=== PATIENT | female | born 1990 | race Caucasian/White ===

== ENCOUNTER → 2018-11-02 16:22 | Outpatient (CLI) | payer BC, SELFPAY | PROVIDERS: Visit Provider Obstetrics & Gynecology | DX: O03.9 Complete or unspecified spontaneous abortion without complication (principal) | CPT/HCPCS: 36415; 86850; 86900; 86901 ==

== ENCOUNTER → 2019-08-27 10:43 | Outpatient (CLI) | payer BC, SELFPAY ==
[2019-08-27 12:05] LABS: Add Manual Diff / Slide Review NO; Basophils Absolute Auto 0 /uL (0-100); Basophils Percent Auto 0.4 % (0-2); Eosinophils Absolute Auto 100 /uL (0-450); Eosinophils Percent Auto 0.8 % (2-4); Hematocrit 37.6 % (36-46); Hemoglobin 12.5 g/dL (12.0-16.0); Lymphocytes Absolute Auto 1700 /uL (1100-4500); Mean Corpuscular HGB Conc 33.4 % (30-36); Mean Corpuscular Volume 86.8 fL (80-100); Monocytes Absolute Auto 500 /uL (0-900); Monocytes Percent Auto 5.4 % (3-14); Neutrophils Absolute Auto 6300 /uL (1500-7000); Neutrophils Percent Auto 73.4 % (50-75); Platelet Count 276 X10^3/uL (150-400); Red Blood Cell Count 4.33 X10^6/uL (4.0-5.2); Red Cell Distribution Width 12.9 % (11.6-14.8); White Blood Cell Count 8.5 X10^3/uL (4.5-11.0)
[2019-08-27 12:50] LABS: HCG Quantitative /Beta subunit 11868 mIU/mL
[2019-08-27 13:03] LABS: Appearance Urine UA CLEAR; Bilirubin Urine UA NEGATIVE (NEGATIVE); Color Urine UA YELLOW; Glucose Urine UA NEGATIVE (Negative); Ketones Urine UA NEGATIVE (NEGATIVE); Leukocyte Esterase Urine UA NEGATIVE (NEGATIVE); Nitrite Urine UA NEGATIVE (Negative); Occult Blood Urine UA NEGATIVE (Negative); Protein Urine UA NEGATIVE (Negative); Urobilinogen Urine UA 0.2 E.U./dL (0.2)
[2019-08-27 13:05] LABS: pH Urine UA 7.5 (4.5-8.0)
[2019-08-27 16:00] LABS: Hepatitis B Surface Antigen NEGATIVE s/c (NEGATIVE); Rubella Antibody IgG 3.2 IU/mL (>15)
[2019-08-27 16:18] LABS: HIV 1 & 2 Ab/Ag 4th Gen Combo NEGATIVE (NEGATIVE); Hep C Virus Ab w/Reflex Quant NEGATIVE s/c (NEGATIVE)
[2019-08-28 15:47] LABS: RPR Screen Nonreactive (Nonreactive)
== END ==
PROVIDERS: Referring Provider Obstetrics & Gynecology; Visit Provider Obstetrics & Gynecology
DX: Z34.01 Encounter for supervision of normal first pregnancy, first trimester (principal); Z3A.01 Less than 8 weeks gestation of pregnancy
CPT/HCPCS: 36415; 80055; 81003; 84702; 86787; 86803; 86850; 86900; 86901; 87086; 87389

== ENCOUNTER → 2019-08-29 09:31 | Outpatient (CLI) | payer BC, SELFPAY ==
--- NOTE | 2019-08-29 09:31 | DI.US.S_ITS ---
PROCEDURE: US OB <= 14 WEEKS FETUS INDICATIONS: EARLY , RT ADNEXAL CYSTIC AREA, R/O ECTOPIC OUTSIDE/PRIOR DATING DATA: Last menstrual period (LMP): 07/05/19. LMP-based estimated date of delivery (NELDA): 04/10/20. First dating scan (date and location): See below. Estimated date of delivery (NELDA) from first dating scan: See below. TECHNIQUE: Real-time scanning was performed of the fetus and maternal pelvic organs, with image documentation. Endovaginal scanning was also performed to better visualize the fetus and maternal ovaries. COMPARISON: [facility], , US OB <= 14 WEEKS FETUS, 08/27/2019, 10:14. FINDINGS: Embryo: Intrauterine gestational sac is visualized with a mean gestational sac diameter measuring 1.4 cm, 6 weeks 2 days however no pole is visualized. Possible small or residual yolk sac is noted measuring 1 mm. Subchorionic hemorrhage is noted measuring 2.4 x 0.6 x 2.2 cm Measurement variability in dating: +/- 4 weeks by LMP, +/- 7 days by mean sac diameter (use before 6 weeks gestation if crown-rump length not able to be measured), +/- 5 days by crown-rump length (up to 8 weeks 6 days gestation), +/- 7 days by crown-rump length (up to 13 weeks 6 days gestation). Maternal organs: Ovaries grossly unremarkable except for a presumed right-sided corpus luteum. Limited images through the kidneys demonstrate no hydronephrosis. IMPRESSION: Intrauterine gestational sac however no pole. Findings are probably patient admitting representative of blighted ovum/missed spontaneous (much less likely early IUP). Recommend correlation with serial beta-hCG values, and if necessary a repeat pelvic ultrasound in one week could be performed. Subchorionic hemorrhage Dictated by: Fahad Gu M.D. on 08/29/2019 at 16:28 Approved by: Fahad Gu M.D. on 08/29/2019 at 16:31
== END ==
PROVIDERS: Referring Provider Obstetrics & Gynecology; Visit Provider Obstetrics & Gynecology
DX: O20.9 Hemorrhage in early pregnancy, unspecified (principal); Z3A.01 Less than 8 weeks gestation of pregnancy
CPT/HCPCS: 76801; 76817

== ENCOUNTER → 2019-09-05 09:50 | Outpatient (CLI) | payer BC, SELFPAY ==
--- NOTE | 2019-09-05 09:53 | DI.US.S_ITS ---
PROCEDURE: US OB <= 14 WEEKS FETUS INDICATIONS: VIABILITY OUTSIDE/PRIOR DATING DATA: Last menstrual period (LMP): 07/05/19. LMP-based estimated date of delivery (NELDA): 04/10/20. First dating scan (date and location): 08/29/19. Estimated date of delivery (NELDA) from first dating scan: 04/21/20. TECHNIQUE: Real-time scanning was performed of the fetus and maternal pelvic organs, with image documentation. Endovaginal scanning was also performed to better visualize the fetus and maternal ovaries. COMPARISON: [facility], , OB <= 14 WEEKS FETUS, 08/27/2019, 10:14. [facility], , OB <= 14 WEEKS FETUS, 08/29/2019, 9:50. FINDINGS: Embryo: Intrauterine gestational sac is seen with mean gestational sac diameter measured 1.4 cm, 6 weeks 2 days. However, no pole identified. No definite yolk sac visualized. Measurement variability in dating: +/- 4 weeks by LMP, +/- 7 days by mean sac diameter (use before 6 weeks gestation if crown-rump length not able to be measured), +/- 5 days by crown-rump length (up to 8 weeks 6 days gestation), +/- 7 days by crown-rump length (up to 13 weeks 6 days gestation). Maternal organs: Ovaries unremarkable except for presumed right-sided corpus luteum. Limited images through the kidneys demonstrate no hydronephrosis. IMPRESSION: Redemonstration of intrauterine gestational sac however still no pole identified. Findings are most suspicious for blighted ovum. Recommend confirmation with serial hCG values. Previous subchorionic hemorrhage not visualized Dictated by: Fahad Gu M.D. on 09/05/2019 at 12:21 Approved by: Fahad Gu M.D. on 09/05/2019 at 12:24
== END ==
PROVIDERS: Referring Provider Obstetrics & Gynecology; Visit Provider Obstetrics & Gynecology
DX: O36.80X0 Pregnancy with inconclusive fetal viability, not applicable or unspecified (principal); Z3A.01 Less than 8 weeks gestation of pregnancy
CPT/HCPCS: 76801; 76817

== ENCOUNTER → 2019-10-25 10:01 | Outpatient (CLI) | payer BC, SELFPAY ==
[2019-10-25 12:33] LABS: HCG Quantitative /Beta subunit 5.8 mIU/mL
== END ==
PROVIDERS: Referring Provider Obstetrics & Gynecology; Visit Provider Obstetrics & Gynecology
DX: O03.9 Complete or unspecified spontaneous abortion without complication (principal)
CPT/HCPCS: 36415; 84702